=== PATIENT | female | born 1985 | race Caucasian/White ===

== ENCOUNTER 2017-07-13 01:47 | Emergency (ER) | payer MEDICARE, OTHER ==
[2017-07-13 01:57] VITALS: BP 138/77; PULSE 107; RESP 18; TEMP 97.1
[2017-07-13] MEDS ORDERED: ACET/COD 300 MG/30 MG STARTER PACK 6 TAB BTL PO STA (02:22)
[2017-07-13] MEDS ORDERED: PENICILLIN VK 500MG STARTER 4 TAB BTL PO STA (02:22)
--- NOTE | 2017-07-13 02:23 | ED ---
ENT HPI - General Chief complaint: Dental/Oral Stated complaint: dental pain Time Seen by Provider: 07/13/17 02:18 Source: patient Mode of arrival: ambulatory Limitations: no limitations - History of Present Illness Initial comments: 31-year-old female patient presents to the emergency department today for complaints of left upper dental pain. Patient states that 2000 and hurting for the last 12 hours. States she did try temporary dental filling and taking ibuprofen and Tylenol, these things have not helped her symptoms. States she is unable to sleep due to the pain. She denies any fevers, chills, nausea, vomiting, difficulty opening or closing her mouth. She denies any difficulty swallowing. States she does have an appointment with the dentist on 2017. Patient denies any recent rash, shortness breath, chest pain, abdominal pain, diarrhea, constipation, back pain, numbness, tingling, dizziness, weakness , hematuria, dysuria, urinary urgency, urinary frequency, headache, visual changes, or any other complaints. - Related Data Previous Rx's Medication Instructions Recorded Acetaminophen-Codeine 300-30mg 1 tab PO Q6H PRN #15 tablet 07/13/17 [Tylenol #3] Penicillin V Potassium [Pen Vee K] 500 mg PO Q6H #40 tablet 07/13/17 Allergies Allergy/AdvReac Type Severity Reaction Status Date / Time naproxen Allergy Swelling Verified 07/13/17 01:57 Review of Systems ROS Statement: Those systems with pertinent positive or pertinent negative responses have been documented in the HPI. ROS Other: All systems not noted in ROS Statement are negative. Past Medical History Past Medical History: Fibromyalgia Additional Past Medical History / Comment(s): scoliosis, History of Any Multi-Drug Resistant Organisms: None Reported Past Surgical History: Back Surgery Past Psychological History: No Psychological Hx Reported Smoking Status: Current every day smoker Past Alcohol Use History: Rare Past Drug Use History: None Reported General Exam Limitations: no limitations General appearance: alert, in no apparent distress, other (This is a well- developed, well-nourished adult female patient in no acute distress. Vital signs upon presentation are temperature 97.1F, pulse 107, respirations 18, blood pressure 138/77, pulse ox 95% on room air.) Eye exam: Present: normal appearance, PERRL, EOMI. Absent: scleral icterus, conjunctival injection, periorbital swelling ENT exam: Present: normal exam, mucous membranes moist, other (Poor dentition. Multiple dental caries. Tooth #14 and 15 have surrounding gingival erythema. No evidence of drainable abscess.). Absent: normal oropharynx Neck exam: Present: normal inspection. Absent: tenderness, meningismus, lymphadenopathy Respiratory exam: Present: normal lung sounds bilaterally. Absent: respiratory distress, wheezes, rales, rhonchi, stridor Cardiovascular Exam: Present: regular rate, normal rhythm, normal heart sounds. Absent: systolic murmur, diastolic murmur, rubs, gallop, clicks Neurological exam: Present: alert, oriented X3, CN II-XII intact Psychiatric exam: Present: normal affect, normal mood Skin exam: Present: warm, dry, intact, normal color. Absent: rash Course Vital Signs 07/13/17 01:54 Temperature 97.1 F L Pulse Rate 107 H Respiratory 18 Rate Blood Pressure 138/77 O2 Sat by Pulse 95 Oximetry Medical Decision Making - Medical Decision Making 31-year-old female patient presented to the emergency department today for evaluation of left upper dental pain. Physical examination did reveal very poor dentition with gingival erythema surrounding teeth #14 and #15. Patient is afebrile. She'll be given pain medication and antibiotic. She does have an appointment with the dentist on 07/17/2017, she is urged to keep this appointment. Return parameters discussed in detail. She verbalizes understanding and agrees with this plan. Disposition Clinical Impression: Pain due to dental caries Disposition: HOME SELF-CARE Condition: Good Instructions: Dental Caries (ED), Toothache (ED) Additional Instructions: Apply warm compresses to the outside of the face. Follow-up with dentistry as soon as possible. Return here immediately for any new, worsening, or concerning symptoms. Prescriptions: Acetaminophen-Codeine 300-30mg [Tylenol #3] 1 tab PO Q6H PRN #15 tablet PRN Reason: Pain Penicillin V Potassium [Pen Vee K] 500 mg PO Q6H #40 tablet Referrals: Queenie Reyez MD [Primary Care Provider] - 1-2 days Time of Disposition: 02:23
== END 2017-07-13 02:32 | disposition home or self-care (01) ==
LOC: EC 01:47
DX: K02.9 Dental caries, unspecified (principal); F17.200 Nicotine dependence, unspecified, uncomplicated; Z88.6 Allergy status to analgesic agent
CPT/HCPCS: 99282

== ENCOUNTER 2017-07-23 22:21 | Emergency (ER) | payer MEDICARE ==
[2017-07-23 22:34] VITALS: BP 119/78; PULSE 87; RESP 18; TEMP 97.2
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
== END 2017-07-23 23:25 | disposition home or self-care (01) ==
LOC: EC 22:21
DX: Z02.89 Encounter for other administrative examinations (principal); F17.200 Nicotine dependence, unspecified, uncomplicated; Z88.6 Allergy status to analgesic agent
CPT/HCPCS: 99282

== ENCOUNTER 2018-05-07 21:57 | Emergency (ER) | payer MEDICARE ==
[2018-05-07 22:09] VITALS: RESP 16; TEMP 98.3
[2018-05-07] MEDS ORDERED: KETOROLAC 30 MG/ML 1 ML VIAL IM STA (22:22)
[2018-05-07] MEDS ORDERED: ORPHENADRINE 30 MG/ML 2 ML VIAL IM STA (22:23)
--- NOTE | 2018-05-07 22:37 | ED ---
General Adult HPI - General Chief complaint: Neck Pain/Injury Stated complaint: Neck pain Time Seen by Provider: 05/07/18 22:14 Source: patient, RN notes reviewed Mode of arrival: ambulatory Limitations: no limitations - History of Present Illness Initial comments: 32-year-old female presents to the emergency department for a chief complaint of left-sided neck pain. Patient denies any injuries. Patient states this started yesterday afternoon. She states pain is worse when she looks to the right. Patient has not taken anything at home for pain. Patient denies any headache. She denies any visual changes. Patient denies any back pain. She denies any paresthesias or numbness down bilateral arms. Patient does have a history of scoliosis. She denies fevers or chills at home. Patient has no other complaints at this time including shortness of breath, chest pain, abdominal pain, nausea or vomiting, headache, or visual changes. - Related Data Home Medications Medication Instructions Recorded Confirmed No Known Home Medications 05/07/18 05/07/18 Allergies Allergy/AdvReac Type Severity Reaction Status Date / Time naproxen Allergy Swelling Verified 05/07/18 22:23 Review of Systems ROS Statement: Those systems with pertinent positive or pertinent negative responses have been documented in the HPI. ROS Other: All systems not noted in ROS Statement are negative. Past Medical History Past Medical History: Fibromyalgia Additional Past Medical History / Comment(s): scoliosis,, History of Any Multi-Drug Resistant Organisms: None Reported Past Surgical History: Back Surgery Past Psychological History: No Psychological Hx Reported Smoking Status: Current every day smoker Past Alcohol Use History: Rare Past Drug Use History: None Reported General Exam Limitations: no limitations General appearance: alert, in no apparent distress Head exam: Present: atraumatic, normocephalic, normal inspection Eye exam: Present: normal appearance, PERRL, EOMI. Absent: scleral icterus, conjunctival injection, periorbital swelling ENT exam: Present: normal exam, mucous membranes moist Neck exam: Present: normal inspection, tenderness (Tenderness noted to left cervical paraspinal area. No midline tenderness). Absent: meningismus ( Negative Kernig, Brudzinski), full ROM (Patient unable to turn head to the right. Patient has 30 rotation to the left. full flexion, 30 extension), lymphadenopathy Respiratory exam: Present: normal lung sounds bilaterally. Absent: respiratory distress, wheezes, rales, rhonchi, stridor Cardiovascular Exam: Present: regular rate, normal rhythm, normal heart sounds. Absent: systolic murmur, diastolic murmur, rubs, gallop, clicks Neurological exam: Present: alert, oriented X3, CN II-XII intact, normal gait Expanded Patient oriented to: Present: person, place, time Cranial nerves: EOM's Intact: Normal, Tongue Deviation: Normal, Nystagmus: Normal Sensory exam: Upper Extremity Light Touch: Normal, Upper Extremity Pin Prick: Normal, Lower Extremity Light Touch: Normal, Lower Extremity Pin Prick: Normal Motor strength exam: RUE: 5, LUE: 5, RLE: 5, LLE: 5 Eye Response: (4) open spontaneously Motor Response: (6) obeys commands Verbal Response: (5) oriented Anusha Total: 15 Psychiatric exam: Present: normal affect, normal mood Course Vital Signs 05/07/18 22:07 Temperature 98.3 F Pulse Rate 87 Respiratory 16 Rate Blood Pressure 125/82 O2 Sat by Pulse 96 Oximetry Medical Decision Making - Medical Decision Making 32-year-old female presents to the emergency department for a chief complaint of left neck pain times one day. Patient states this started yesterday. Patient states pain is worse with rotation of the neck. She denies any injuries. On exam no midline tenderness. Patient does have left-sided paraspinal tenderness along the cervical area. Limited rotation to the right. Patient has full flexion with 30 extension. No paresthesias down bilateral arms. No fevers or chills. Patient given shot of Toradol and Norflex in the emergency department. Patient states she has tolerated Toradol before and has not had an ALLERGIC reaction. After Toradol and Norflex was given patient is feeling better. She states she is ready to go home. She will take Motrin and Tylenol at home for pain which was discussed with her. She will follow up with primary care in 1-2 days. She will return if she is any worsening symptoms. Patient does have a ride home. Disposition Clinical Impression: Strain of neck muscle Disposition: HOME SELF-CARE Condition: Good Instructions: Cervical Strain (ED) Additional Instructions: Apply heat to the area. Do gentle stretching. Please take Motrin and Tylenol for pain. Please follow-up with primary care in 1-2 days. Is patient prescribed a controlled substance at d/c from ED?: No Referrals: Queenie Reyez MD [Primary Care Provider] - 1-2 days Time of Disposition: 22:57
[2018-05-07 23:15] VITALS: BP 93/62; PULSE 74
== END 2018-05-07 23:16 | disposition home or self-care (01) ==
LOC: EC 21:57
DX: S16.1XXA Strain of muscle, fascia and tendon at neck level, initial encounter (principal); F17.200 Nicotine dependence, unspecified, uncomplicated; Z88.6 Allergy status to analgesic agent; X50.9XXA Other and unspecified overexertion or strenuous movements or postures, initial encounter
CPT/HCPCS: 99283; 96372 ×2; J2360; J1885

== ENCOUNTER 2020-08-27 14:36 | Emergency (ER) | payer OTHER, MEDICARE ==
[2020-08-27 15:11] VITALS: TEMP 98.3
[2020-08-27] MEDS ORDERED: ACETAMINOPHEN TAB 500 MG TAB PO STA (15:34)
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
[2020-08-27 16:37] VITALS: BP 101/70; PULSE 68; RESP 18
== END 2020-08-27 16:52 | disposition home or self-care (01) ==
LOC: EC 14:36
DX: S16.1XXA Strain of muscle, fascia and tendon at neck level, initial encounter (principal); F17.200 Nicotine dependence, unspecified, uncomplicated; F12.90 Cannabis use, unspecified, uncomplicated; V99.XXXA Unspecified transport accident, initial encounter
CPT/HCPCS: 72050; 72070; 99283; 99284

== ENCOUNTER 2022-04-23 07:10 | Emergency (ER) | payer MEDICARE, OTHER ==
[2022-04-23 07:22] VITALS: BP 112/72; PULSE 67; RESP 20; TEMP 98
--- NOTE | 2022-04-23 07:44 | ED ---
Skin/Abscess/FB HPI - General Chief complaint: Skin/Abscess/Foreign Body Stated complaint: Spider bite Time Seen by Provider: 04/23/22 07:23 Source: patient, RN notes reviewed Mode of arrival: ambulatory Limitations: no limitations - History of Present Illness Initial comments: 36-year-old female presents emergency Department chief complaint of abscess to her scalp. Patient states she was seen for this was placed on amoxicillin. Patient states his been draining states that it feels greatly improved her family wanted her to have another evaluation. Denies fevers chills denies any neck pain no headache patient states that she has no other prior skin infections. Patient states that there is some crusting which they removed. - Related Data Previous Rx's Medication Instructions Recorded Sulfamethox-Tmp 800-160Mg [Bactrim 1 each PO Q12HR #14 tab 04/23/22 Ds] Allergies Allergy/AdvReac Type Severity Reaction Status Date / Time naproxen Allergy Swelling Verified 04/23/22 07:22 Review of Systems ROS Statement: Those systems with pertinent positive or pertinent negative responses have been documented in the HPI. ROS Other: All systems not noted in ROS Statement are negative. Past Medical History Past Medical History: Fibromyalgia Additional Past Medical History / Comment(s): scoliosis,, History of Any Multi-Drug Resistant Organisms: None Reported Past Surgical History: Back Surgery Past Psychological History: No Psychological Hx Reported Smoking Status: Current every day smoker Past Alcohol Use History: Rare Past Drug Use History: Marijuana General Exam Limitations: no limitations General appearance: alert, in no apparent distress Head exam: Present: atraumatic, normocephalic. Absent: normal inspection (Posterior scalp there is draining abscess noted, minimal erythema nontender) Eye exam: Present: normal appearance, PERRL, EOMI. Absent: scleral icterus, conjunctival injection, periorbital swelling ENT exam: Present: normal exam, normal oropharynx, mucous membranes moist Neck exam: Present: normal inspection, full ROM. Absent: tenderness, meningismus, lymphadenopathy Respiratory exam: Present: normal lung sounds bilaterally. Absent: respiratory distress, wheezes, rales, rhonchi, stridor Cardiovascular Exam: Present: regular rate, normal rhythm, normal heart sounds. Absent: systolic murmur, diastolic murmur, rubs, gallop, clicks Course Vital Signs 04/23/22 07:20 Temperature 98 F Pulse Rate 67 Respiratory 20 Rate Blood Pressure 112/72 O2 Sat by Pulse 96 Oximetry Medical Decision Making - Medical Decision Making 36-year-old presented for scalp abscess. Patient was discharged on Bactrim patient was given strict return parameters. Patient is to apply warm compresses. Was pt. sent in by a medical professional or institution? @ [no] Did you speak to anyone other than the patient for history? @RN Did you review nursing and triage notes? @agree Were old charts reviewed? @ no Differential Diagnosis? @Abscess, infected sebaceous cyst, cellulitis EKG interpreted by me (3pts min.)? @ [none] X-rays interpreted by me (1pt min.)? @ [none] CT interpreted by me (1pt min.)? @ [none] U/S interpreted by me (1pt. min.)? @ [none] What testing was considered but not performed? (CT, X-rays, U/S, labs)? Why? @ [CT, X-rays, U/S, labs? Why?] What meds were considered but not given? Why? @ [none] Did you discuss the management of the patient with other professionals? @ [Attending Dr martinez] Did you reconcile home meds? @ [none] Was smoking cessation discussed for >3mins.? @ [none] Was critical care preformed (if so, how long)? @ [none] Were there social determinants of health that impacted care today? How? (Homelessness, low income, unemployed, alcoholism, drug addiction, transportation, low edu. Level, literacy, decrease access to med. care, [facility], rehab)? @ [none] Was patient admitted / discharged? @ [Discharged] Undiagnosed new problem with uncertain prognosis? @ [none] Drug Therapy requiring intensive monitoring for toxicity (Heparin, Nitro, Insulin, Cardizem)? @ [none] Were any procedures done? @ [none] Diagnosis/symptom? @ [Scalp abscess] Acute, or Chronic, or Acute on Chronic? @Acute Uncomplicated (without systemic symptoms) or Complicated (systemic symptoms)? @Uncomplicated Side effects of treatment? @ [none] Exacerbation, Progression, or Severe Exacerbation] @ [no] Poses a threat to life or bodily function? @ [no] Disposition Clinical Impression: Scalp abscess Disposition: HOME SELF-CARE Condition: Stable Instructions (If sedation given, give patient instructions): Abscess (ED) Additional Instructions: Please return to the Emergency Department if symptoms worsen or any other concerns. Prescriptions: Sulfamethox-Tmp 800-160Mg [Bactrim Ds] 1 each PO Q12HR #14 tab Is patient prescribed a controlled substance at d/c from ED?: No Referrals: None,Stated [Primary Care Provider] - 1-2 days Time of Disposition: 07:43
== END 2022-04-23 08:04 | disposition home or self-care (01) ==
LOC: EC 07:10
DX: L02.811 Cutaneous abscess of head [any part, except face] (principal); F17.200 Nicotine dependence, unspecified, uncomplicated; F12.90 Cannabis use, unspecified, uncomplicated; Z88.6 Allergy status to analgesic agent
CPT/HCPCS: 99282

== ENCOUNTER 2024-05-08 21:31 | Emergency (ER) | payer MEDICARE, OTHER ==
[2024-05-08 21:35] VITALS: RESP 18; TEMP 98.1
--- NOTE | 2024-05-08 21:38 | ED ---
General Adult HPI - General Chief complaint: Extremity Problem,Nontraumatic Stated complaint: Foot swelling Time Seen by Provider: 05/08/24 21:36 Source: patient, RN notes reviewed Mode of arrival: ambulatory Limitations: no limitations - History of Present Illness Initial comments: This is a 38-year-old female with history of fibromyalgia and scoliosis pr esenting to emergency department for complaint of discoloration to her left lower extremity most notable from the mid calf to her foot. Patient states that when she got out of the shower she noticed that her left lower extremity was red and mildly swollen compared to her right. States that the mid calf to her foot on the left-hand side feels tight. She denies recent injury. She denies recent prolonged travel, recent surgeries, history of DVT or PE, estrogen use, shortness of breath, heart palpitations. - Related Data Previous Rx's Medication Instructions Recorded Sulfamethox-Tmp 800-160Mg [Bactrim 1 each PO Q12HR #14 tab 04/23/22 Ds] Allergies Allergy/AdvReac Type Severity Reaction Status Date / Time naproxen Allergy Swelling Verified 05/08/24 21:35 Review of Systems ROS Statement: Those systems with pertinent positive or pertinent negative responses have been documented in the HPI. ROS Other: All systems not noted in ROS Statement are negative. Past Medical History Past Medical History: Fibromyalgia Additional Past Medical History / Comment(s): scoliosis,, History of Any Multi-Drug Resistant Organisms: None Reported Past Surgical History: Back Surgery Past Psychological History: No Psychological Hx Reported Smoking Status: Current every day smoker Past Alcohol Use History: Rare Past Drug Use History: Marijuana General Exam Limitations: no limitations ENT exam: Present: normal exam, mucous membranes moist Respiratory exam: Present: normal lung sounds bilaterally. Absent: respiratory distress, wheezes, rales, rhonchi, stridor Cardiovascular Exam: Present: regular rate, normal rhythm, normal heart sounds. Absent: systolic murmur, diastolic murmur, rubs, gallop, clicks GI/Abdominal exam: Present: soft, normal bowel sounds. Absent: distended, tenderness, guarding, rebound, rigid Left Lower Leg exam: Present: tenderness (posterior calf) Neurovascular tendon exam: Present: no vascular compromise. Absent: pulse deficit, abnormal cap refill, motor deficit, sensory deficit Gait: observed and normal Back exam: Present: normal inspection Course Vital Signs 05/08/24 05/08/24 21:33 22:43 Temperature 98.1 F Pulse Rate 80 105 H Respiratory 18 18 Rate Blood Pressure 130/71 123/77 O2 Sat by Pulse 99 99 Oximetry Medical Decision Making - Medical Decision Making Was pt. sent in by a medical professional or institution (, PA, PROSTHETIC MAKEUP DESIGNER, urgent care, hospital, or correction...) When possible be specific @ -No Did you speak to anyone other than the patient for history (EMS, parent, family, police, friend...)? What history was obtained from this source @ -No Did you review nursing and triage notes (agree or disagree)? Why? @ -I reviewed and agree with nursing and triage notes Were old charts reviewed (outside hosp., previous admission, EMS record, old EKG, old radiological studies, urgent care reports/EKG's, correction records)? Report findings @ -No old charts were reviewed Differential Diagnosis (chest pain, altered mental status, abdominal pain women, abdominal pain men, vaginal bleeding, weakness, fever, dyspnea, syncope, headache, dizziness, GI bleed, back pain, seizure, CVA, palpatations, mental health, musculoskeletal)? @ -Differential Musculoskeletal Muscular strain, contusion, ligament sprain, fracture, arthritis, septic arthritis, bursitis, cellulitis, muscle spasm, nerve compression, DVT, arterial occlusion, herpes zoster, electrolyte abnormality, tumor.... This is not meant to be in all inclusive list EKG interpreted by me (3pts min.). @ -none X-rays interpreted by me (1pt min.). @ -None CT interpreted by me (1pt min.). @ -None done U/S interpreted by me (1pt. min.). @ -Duplex ultrasound of the left lower extremity no evidence for DVT What testing was considered but not performed or refused? (CT, X-rays, U/S, labs)? Why? @ -None What meds were considered but not given or refused? Why? @ -None Did you discuss the management of the patient with other professionals (professionals i.e. SARAH Fischer, PROSTHETIC MAKEUP DESIGNER, lab, RT, psych nurse, family welfare social work professor, application development team lead, teacher, seismology technical officer, onsite case manager)? Give summary @ -No Was smoking cessation discussed for >3mins.? @ -No Was critical care preformed (if so, how long)? @ -No Were there social determinants of health that impacted care today? How? (Homelessness, low income, unemployed, alcoholism, drug addiction, transportation, low edu. Level, literacy, decrease access to med. care, residential, rehab)? @ -No Was there de-escalation of care discussed even if they declined (Discuss DNR or withdrawal of care, Hospice)? DNR status @ -No What co-morbidities impacted this encounter? (DM, HTN, Smoking, COPD, CAD, Cancer, CVA, ARF, Chemo, Hep., AIDS, mental health diagnosis, sleep apnea, morbid obesity)? @ -None Was patient admitted / discharged? Hospital course, mention meds given and route, prescriptions, significant lab abnormalities, going to OR and other pertinent info. @ -Discharge. 38-year-old female presenting with pain to the left posterior calf. On evaluation there is no evidence of erythema, no palpable cord. Negative Homans' sign. US left lower extremity negative for DVT. discussed with attending, Dr. Kang Undiagnosed new problem with uncertain prognosis? @ -No Drug Therapy requiring intensive monitoring for toxicity (Heparin, Nitro, Insulin, Cardizem)? @ -No Were any procedures done? @ -No Diagnosis/symptom? @ -lower extremity pain Acute, or Chronic, or Acute on Chronic? @ -acute Uncomplicated (without systemic symptoms) or Complicated (systemic symptoms)? @ -uncomplicated Side effects of treatment? @ -No Exacerbation, Progression, or Severe Exacerbation? @ -No Poses a threat to life or bodily function? How? (Chest pain, [place], [place], pneumonia, PE, COPD, DKA, ARF, appy, cholecystitis, CVA, Diverticulitis, Homicidal, Suicidal, threat to staff... and all critical care pts) @ -No Disposition Clinical Impression: Lower extremity pain, left Disposition: HOME SELF-CARE Condition: Good Instructions (If sedation given, give patient instructions): Leg Pain (ED) Additional Instructions: Please return to the Emergency Department if symptoms worsen or any other concerns. Is patient prescribed a controlled substance at d/c from ED?: No Referrals: None,Stated [Primary Care Provider] - 1-2 days Time of Disposition: 22:37
--- NOTE | 2024-05-08 22:25 | US ---
EXAMINATION TYPE: US venous doppler duplex LE LT DATE OF EXAM: 05/08/2024 10:17 PM COMPARISON: NONE CLINICAL INDICATION: Female, 38 years old with history of calf pain; foot swelling, no injury, Pain TECHNIQUE: The lower extremity deep venous system is examined utilizing real time linear array sonog estefanía with graded compression, color doppler sonography, and spectral doppler. SIDE PERFORMED: Left FINDINGS: VESSELS IMAGED: Common Femoral Vein Deep Femoral Vein Greater Saphenous Vein * Femoral Vein Popliteal Vein Small Saphenous Vein * Proximal Calf Veins (* superficial vessels) Left Leg: Negative for DVT, Color Doppler imaging shows patency of the vessels. Spectral waveforms a re within normal limits. IMPRESSION: 1. No evidence of deep vein thrombosis of the left lower extremity. [facility], , 05/08/2024 10:23 PM
[2024-05-08 22:45] VITALS: BP 123/77; PULSE 105
== END 2024-05-08 22:43 | disposition home or self-care (01) ==
LOC: EC 21:31
DX: M79.662 Pain in left lower leg (principal); F17.200 Nicotine dependence, unspecified, uncomplicated; Z88.6 Allergy status to analgesic agent
CPT/HCPCS: 99283

== ENCOUNTER 2024-07-30 17:14 | Emergency (ER) | payer MEDICARE, OTHER ==
[2024-07-30 17:21] VITALS: RESP 18; TEMP 97.9
--- NOTE | 2024-07-30 17:29 | ED ---
General Adult HPI - General Chief complaint: Neck Pain/Injury Stated complaint: neck/back pain Time Seen by Provider: 07/30/24 17:24 Source: patient, RN notes reviewed Mode of arrival: ambulatory Limitations: no limitations - History of Present Illness Initial comments: 38-year-old female presents to the emergency department for evaluation of neck and back pain. Patient states that this started when she woke up this morning. She notes that she had some aching pain last night but today it is much worse. She reports that she has pain with movement of the neck. Also pain with palpation in the right side of her back. She denies any headache, chest pain, shortness of breath. Denies any loss of bowel or bladder function. Denies any paresthesias. - Related Data Previous Rx's Medication Instructions Recorded Sulfamethox-Tmp 800-160Mg [Bactrim 1 each PO Q12HR #14 tab 04/23/22 Ds] Cyclobenzaprine [Flexeril] 5 mg PO TID PRN #15 tablet 07/30/24 HYDROcodone/APAP 5-325MG [[place] 5] 1 each PO Q6HR PRN #12 tab 07/30/24 Allergies Allergy/AdvReac Type Severity Reaction Status Date / Time naproxen Allergy Swelling Verified 07/30/24 17:21 Review of Systems ROS Statement: Those systems with pertinent positive or pertinent negative responses have been documented in the HPI. ROS Other: All systems not noted in ROS Statement are negative. Past Medical History Past Medical History: Fibromyalgia Additional Past Medical History / Comment(s): scoliosis,, History of Any Multi-Drug Resistant Organisms: None Reported Past Surgical History: Back Surgery Past Psychological History: No Psychological Hx Reported Smoking Status: Current every day smoker Past Alcohol Use History: Rare Past Drug Use History: Marijuana General Exam Limitations: no limitations General appearance: alert, in no apparent distress Head exam: Present: atraumatic, normocephalic, normal inspection Eye exam: Present: normal appearance, PERRL, EOMI. Absent: scleral icterus, conjunctival injection, periorbital swelling ENT exam: Present: normal exam, mucous membranes moist Neck exam: Present: tenderness. Absent: full ROM (decreased ROM d/t pain) Respiratory exam: Present: normal lung sounds bilaterally. Absent: respiratory distress, wheezes, rales, rhonchi, stridor Cardiovascular Exam: Present: regular rate, normal rhythm, normal heart sounds. Absent: systolic murmur, diastolic murmur, rubs, gallop, clicks Extremities exam: Present: normal inspection, full ROM, normal capillary refill. Absent: tenderness, pedal edema, joint swelling, calf tenderness Back exam: Present: tenderness Neurological exam: Present: alert, oriented X3 Psychiatric exam: Present: normal affect, normal mood Skin exam: Present: warm, dry, intact, normal color. Absent: rash Course Vital Signs 07/30/24 07/30/24 17:19 21:12 Temperature 97.9 F 97.9 F Pulse Rate 90 70 Respiratory 18 18 Rate Blood Pressure 118/90 117/75 O2 Sat by Pulse 99 98 Oximetry Medical Decision Making - Medical Decision Making Was pt. sent in by a medical professional or institution (SARAH Fischer, RN EMERGENCY, urgent care, hospital, or usp...) When possible be specific @ -No Did you speak to anyone other than the patient for history (EMS, parent, family, police, friend...)? What history was obtained from this source @ -No Did you review nursing and triage notes (agree or disagree)? Why? @ -I reviewed and agree with nursing and triage notes Were old charts reviewed (outside hosp., previous admission, EMS record, old EKG, old radiological studies, urgent care reports/EKG's, usp records)? Report findings @ -No old charts were reviewed Differential Diagnosis (chest pain, altered mental status, abdominal pain women, abdominal pain men, vaginal bleeding, weakness, fever, dyspnea, syncope, headache, dizziness, GI bleed, back pain, seizure, CVA, palpatations, mental health, musculoskeletal)? @ -Differential Back Pain: Strain, zoster, cauda equina syndrome, epidural abscess, vertebral osteomyelitis, discitis, fracture, subluxation, disc herniation, DJD, spinal stenosis, dissection, AAA, pancreatitis, peptic ulcer disease, pyelonephritis, kidney stone, this is not meant to be an all-inclusive list. EKG interpreted by me (3pts min.). @ -None X-rays interpreted by me (1pt min.). @ -Cervical spine x-ray reveals no acute process Chest x-ray shows thoracic rods in place, no acute process CT interpreted by me (1pt min.). @ -None done U/S interpreted by me (1pt. min.). @ -None done What testing was considered but not performed or refused? (CT, X-rays, U/S, labs)? Why? @ -None What meds were considered but not given or refused? Why? @ -None Did you discuss the management of the patient with other professionals (professionals i.e. , PA, RN EMERGENCY, lab, RT, psych nurse, social contact worker, special effects designer, teacher, chief quality officer, caser)? Give summary @ -No Was smoking cessation discussed for >3mins.? @ -No Was critical care preformed (if so, how long)? @ -No Were there social determinants of health that impacted care today? How? (Homelessness, low income, unemployed, alcoholism, drug addiction, transportation, low edu. Level, literacy, decrease access to med. care, residential, rehab)? @ -No Was there de-escalation of care discussed even if they declined (Discuss DNR or withdrawal of care, Hospice)? DNR status @ -No What co-morbidities impacted this encounter? (DM, HTN, Smoking, COPD, CAD, Cancer, CVA, ARF, Chemo, Hep., AIDS, mental health diagnosis, sleep apnea, morbid obesity)? @ -None Was patient admitted / discharged? Hospital course, mention meds given and route, prescriptions, significant lab abnormalities, going to OR and other pertinent info. @ -Discharge. Patient presented emergency department for evaluation of neck pain. Patient states that this started this morning. It is reproducible. X- rays were obtained of the cervical close findings chest x-ray which shows no acute process. Patient was provided an initial dose of Norflex, lidocaine patch, and [place] which helped somewhat. She is then given IM morphine followed by IM Dilaudid which improved her symptoms. She is not having any red flag symptoms. The patient will be provided medication for pain control at home. This includes muscle relaxers she was advised not to drive or operate heavy machinery while taking these medications. She is understanding and agreeable with discharge plan. Patient stable at time of discharge. Case discussed with Dr. Love Undiagnosed new problem with uncertain prognosis? @ -No Drug Therapy requiring intensive monitoring for toxicity (Heparin, Nitro, Insulin, Cardizem)? @ -No Were any procedures done? @ -No Diagnosis/symptom? @ -Cervical strain Acute, or Chronic, or Acute on Chronic? @ -Acute Uncomplicated (without systemic symptoms) or Complicated (systemic symptoms)? @ -Uncomplicated Side effects of treatment? @ -No Exacerbation, Progression, or Severe Exacerbation? @ -No Poses a threat to life or bodily function? How? (Chest pain, [place], [place], pneumonia, PE, COPD, DKA, ARF, appy, cholecystitis, CVA, Diverticulitis, Homicidal, Suicidal, threat to staff... and all critical care pts) @ -No Disposition Clinical Impression: Strain of neck muscle Disposition: HOME SELF-CARE Condition: Stable Instructions (If sedation given, give patient instructions): Cervical Sprain (ED) Additional Instructions: Please follow up with your primary care provider. Return to the emergency department for new or worsening symptoms. Prescriptions: Cyclobenzaprine [Flexeril] 5 mg PO TID PRN #15 tablet PRN Reason: Muscle Spasm HYDROcodone/APAP 5-325MG [[place] 5] 1 each PO Q6HR PRN #12 tab PRN Reason: Pain Is patient prescribed a controlled substance at d/c from ED?: No Referrals: None,Stated [Primary Care Provider] - 1-2 days Seng Ortiz MD [Medical Doctor] - 1-2 days Forms: Area PCPs
[2024-07-30] MEDS: HYDROcodone/APAP 5-325MG 1 EACH TAB PO STA (17:57)
[2024-07-30] MEDS: ORPHENADRINE 30 MG/ML 2 ML VIAL IM STA (17:57)
[2024-07-30] MEDS: LIDOCAINE 4% PATCH TOPICAL ONE (17:58)
--- NOTE | 2024-07-30 18:22 | XR ---
EXAMINATION TYPE: XR chest 2V DATE OF EXAM: 07/30/2024 6:16 PM COMPARISON: Chest radiographs from 04/10/2016 TECHNIQUE: XR chest 2V Frontal and lateral views of the chest. CLINICAL INDICATION:Female, 38 years old with history of pain; FINDINGS: Lungs/Pleura: There is no evidence of pleural effusion, focal consolidation, or pneumothorax. Simila r scarring within the left lung base. Pulmonary vascularity: Unremarkable. Heart/mediastinum: Cardiomediastinal silhouette is unremarkable. Musculoskeletal: No acute osseous pathology. Moderate to severe S-shaped scoliotic curvature of the t horacolumbar spine redemonstrated. There are again postsurgical changes with metallic rods transfixin g the visualized thoracolumbar spine. Other findings: Surgical clips within the left upper abdomen redemonstrated. IMPRESSION: 1. No acute cardiopulmonary disease/process. 2. Postsurgical changes with S-shaped scoliosis of the thoracolumbar spine. [facility], , 07/30/2024 6:20 PM
--- NOTE | 2024-07-30 18:26 | XR ---
EXAMINATION TYPE: XR cervical spine comp DATE OF EXAM: 07/30/2024 6:17 PM INDICATION: Patient age:Female; 38 years old; Reason for study: pain; PHH, pain COMPARISON: Cervical spine radiograph 08/27/2020 TECHNIQUE: The cervical spine was imaged in frontal, lateral, bilateral oblique, and odontoid project ions. FINDINGS: No acute fracture. Similar stranding of the normal cervical lordosis. Minimal grade 1 anterolisthesis of C3 on C4. Mild multilevel disc space narrowing. Partial visualization of thoracic stabilization r ods. Pedicles are intact. Soft tissues are within normal limits. The odontoid appears intact. Incide ntal osteophyte of the occipital bone. IMPRESSION: 1. No fracture or dislocation. 2. Mild degenerative disc disease changes of the cervical spine. [facility], , 07/30/2024 6:24 PM
[2024-07-30] MEDS: MORPHINE SULFATE 2 MG/ML SYRINGE IM ONE (19:13)
[2024-07-30] MEDS: HYDROmorphone 0.5 MG/0.5 ML SYRINGE IM STA (20:20)
[2024-07-30 21:23] VITALS: BP 117/75; PULSE 70
== END 2024-07-30 21:12 | disposition home or self-care (01) ==
LOC: EC 17:14
DX: S16.1XXA Strain of muscle, fascia and tendon at neck level, initial encounter (principal); F17.200 Nicotine dependence, unspecified, uncomplicated; Z88.6 Allergy status to analgesic agent; X58.XXXA Exposure to other specified factors, initial encounter
CPT/HCPCS: 99284; 96372; 72050; 71046; J2360; J2270; J1171